=== PATIENT | female | born 1960 | race Caucasian/White ===

== ENCOUNTER 2025-07-07 18:09 | Emergency (ER) | payer MEDICARE, SELFPAY ==
[2025-07-07 18:33] VITALS: BP 131/82
--- NOTE | 2025-07-07 20:26 | ED.GENMED ---
History of Present Illness
General
Chief Complaint: Eye Problems
Source: patient
Time Seen by Provider: 07/07/25 20:11
History of Present Illness
History of Present Illness:
65-year-old female presents emergency department with wound complaints of feeling like the inner aspect of her right eye was a little red for the last week or so. She denies any drainage/discharge, change in vision, fever, chills, URI symptoms, or
other complaints. Then, she woke up this morning and noticed that there was blood in the 'white' of her eye medially. She denies recent trauma or falls, recent straining or Valsalva like maneuvers, constipation, headache, nausea, vomiting, double
vision, blurry vision. She has a mild vague foreign body sensation in the inner aspect of her eye. Patient denies any other complaints. She wears glasses but not contacts.
Past History
Past History
ED Past Medical History: CAD, COPD, GERD and Psychiatric (Anxiety)
ED Past Surgical History: Appendectomy, Cholecystectomy, Orthopedic and Other
Social History
Tobacco: Non-smoker
Alcohol: None
Drug: None
Personal: Single
Living: alone
Phy Exam
Physical Exam
Physical Exam:
GENERAL: Alert , in no apparent distress
EYE: pupils equal and reactive, EOMI, no obj photophobia. No discharge. There is a subconj hemorrhage noted from 12-6 o'clock position, no hyphema, no fb noted (s/p flouresc stain), no lid/facial swelling. No ttp/redness/drainage noted at lacrimal
area.
NECK: Supple, no significant adenopathy.
ENT: o/p clr, mmm.
CARDIAC: Regular rate and rhythm .
LUNGS: Clear breath sounds bilaterally, no acute respiratory distress, no wheezes/rales/rhonchi
ABDOMEN: Soft, without focal tenderness, no r/g, no cvat
NEUROLOGICAL: Alert and oriented, no focal neuro deficits
SKIN: Warm and dry, skin intact.
MUSCULOSKELETAL: No edema, well perfused.
PSYCH: Normal and appropriate interaction.
Course
Orders/Labs/Results
Orders:
Orders
07/07/25 20:24
Visual Acuity- Treatment ONCE
Vital Signs
Initial and Last Documented VS:
Initial Vital Signs
Temp Pulse Resp BP Pulse Ox
98.0 F 89 16 131/82 98
07/07/25 18:33 07/07/25 18:33 07/07/25 18:33 07/07/25 18:33 07/07/25 18:33
Last Documented Vital Signs
Temp Pulse Resp BP Pulse Ox
98.0 F 89 16 131/82 98
07/07/25 18:33 07/07/25 18:33 07/07/25 18:33 07/07/25 18:33 07/07/25 18:33
*Pulse Oximetry
SaO2: 98
Oxygen Mode of Delivery: Room air
Update Note
Update Note:
Patient presents to the Emergency Department with blood in eye
Number and Complexity of Problems Addressed at the Encounter
� Chronic conditions affecting care:
� Acute Exacerbation and/or Progression of Chronic Illness:
� Differential Diagnosis includes:but not limited to globe rupture, eye trauma, subconj hemorrhage, lacrimal duct infx, stye, hyphema, etc etc etc
Amount and/or Complexity of Data to be Reviewed and Analyzed
� I performed an independent evaluation of and my interpretation is:
EKG:
CT:
Xrays:
Laboratory Studies:
Other:
� Review of other/old records reveals:
� Clinical information was obtained by an independent historian:
� Prescriptions/Medications Considered but not given:
� Further testing considered but not performed:
Risk of Complications and/or Morbidity or Mortality of Patient Management
� Social determinants of health affecting care:
� Discussion with other providers (PCP, Hospitalists, Consultants, etc):
� Escalation of care including admission/observation vs risk of discharge considered:IOP measured at 12 here (nl). Eye exam thorough, no fb, no hyphema, no signs globe rupture etc to suggest other dx beyond subconj hemorrhage.
Dw pt import of f/u and reasons to rted.
ED Attending Note
-
Portions of this chart may have been created with voice recognition software.� Occasional wrong word or��sound alike� substitutions may have occurred due to the inherent limitations of voice recognition software.
Discharge Plan
Departure
Patient Disposition: Home (Routine Discharge)
Date of Disposition: 07/07/25
Time of Disposition: 20:26
Patient with high blood pressure during this ER visit?: Yes
Condition: Good
Discharge Problem:
Subconjunctival hemorrhage
Instructions: Subconjunctival Hemorrhage, BLOOD PRESSURE
Prescriptions:
No Action
multivitamin [Daily Multiple] 1 EACH tablet
1 tab PO DAILY
diazepam 5 MG tablet
5 mg PO PRN PRN (Reason: anxiety)
naproxen-diphenhydramine [Aleve PM] 1 EACH tablet
1 tab PO DAILY
diazepam [Valium] 5 mg tablet
5 mg PO TID PRN (Reason: Muscle spasms) Qty: 6 0RF
Referrals:
Cesia Will MD [Active, Ophthalmology] - Next open appointment
Activity Restrictions/Additional Instructions:
IF YOU DEVELOP BLURRY VISION, DOUBLE VISION, CHANGE IN VISION, EYE PAIN, DRAINAGE, FEVER, SEVERE HEADACHE, VOMITING, OR OTHER WORRISOME SIGNS, PLEASE RETURN TO THE ER IMMEDIATELY!
Interventions
Interventions:
*Risk Screen - Suicide Last Done: 07/07/25 18:33
*Neglect/Abuse Screening Last Done: 07/07/25 18:33
Discharge Date and Time
Print Language: SYRIAC
== END 2025-07-07 20:55 | disposition home or self-care (01) ==
LOC: EMR 18:09
PROVIDERS: EMERGENCY PHYSICIAN Emergency Medicine; FAMILY PHYSICIAN Family Medicine
DX: H11.31 Conjunctival hemorrhage, right eye (principal); I25.10 Atherosclerotic heart disease of native coronary artery without angina pectoris; J44.9 Chronic obstructive pulmonary disease, unspecified; K21.9 Gastro-esophageal reflux disease without esophagitis; F41.9 Anxiety disorder, unspecified; Z90.49 Acquired absence of other specified parts of digestive tract
CPT/HCPCS: 99282